=== PATIENT | female | born 1995 | race Caucasian/White ===

== ENCOUNTER 2018-07-21 23:04 | Emergency (ER) | payer OTHER ==
[~2018-07-21] VITALS: Ht 160 cm; Wt 54.4 kg
[2018-07-21] MEDS ORDERED: MOBIC7.5 MG PO (23:18)
[2018-07-21] MEDS ORDERED: CLEOCIN HCL150 MG PO (23:18)
[2018-07-21 23:29] VITALS: BP 98/67
== END 2018-07-21 23:34 | disposition home or self-care (01) ==
LOC: ER 23:04
DX: K08.89 Other specified disorders of teeth and supporting structures (principal); F17.210 Nicotine dependence, cigarettes, uncomplicated; Z88.1 Allergy status to other antibiotic agents; Z88.8 Allergy status to other drugs, medicaments and biological substances; Z98.890 Other specified postprocedural states